=== PATIENT | female | born 1995 | race Caucasian/White ===

== ENCOUNTER 2016-09-07 18:26 | Emergency (ER) | payer BC, OTHER ==
[2016-09-07 18:45] VITALS: BP 120/61
[2016-09-07] MEDS ORDERED: NS 0.9% 1000 ML* 1,000 ML IV ONE (19:01)
[2016-09-07] MEDS ORDERED: Ondansetron INJ* 2 MG/ML VIAL IV ONE (19:01)
[2016-09-07] MEDS ORDERED: Famotidine IV* 10 MG/ML 2 ML (20 mg) IV ONE (19:01)
--- NOTE | 2016-09-07 19:42 | RAD ---
INDICATION: Upper abdominal pain. COMPARISON: There are no prior studies available for comparison. TECHNIQUE: Multiple real-time images of the right upper quadrant were obtained. FINDINGS: The gallbladder appear normal. No gallbladder wall thickening or pericholecystic fluid is present. No intra or extrahepatic ductal distention is present. The common bile duct measured 0.3 cm in diameter. The liver is normal in size without significant focal abnormality. The pancreas is partially obscured by overlying bowel gas. The right kidney is normal in size without evidence for hydronephrosis. IMPRESSION: NEGATIVE EXAM.
[2016-09-07 20:02] LABS: Hematocrit 41 % (35-47); Hemoglobin 13.6 g/dl (12.0-16.0); Mean Corpuscular HGB Conc 34 g/dl (31-36); Mean Corpuscular Hemoglobin 30 pg (27-31); Mean Corpuscular Volume 89 fL (80-97); Mean Platelet Volume 8 um3 (7.4-10.4); Red Cell Distribution Width 13 % (10.5-15); White Blood Count 13.5 10^3/ul (3.5-10.8)
[2016-09-07 20:03] LABS: Add Diff/Slide Review? Slide Review Added; Comments Flag Yes
[2016-09-07 20:28] LABS: ALT 12 U/L (7-52); AST 18 U/L (13-39); Albumin 4.5 g/dL (3.2-5.2); Alkaline Phosphatase 69 U/L (34-104); Amylase 42 U/L (29-103); Anion Gap 7 mmol/L (2-11); BUN/Creatinine Ratio 11.6 (8-20); Blood Urea Nitrogen 11 mg/dL (6-24); C Reactive Protein 10.65 mg/L (< 5.00); CO2 Carbon Dioxide 27 mmol/L (22-32); Calcium 9.4 mg/dL (8.6-10.3); Chloride 102 mmol/L (101-111); EGFR African American 95.5 (>60); EGFR Non-African American 74.3 (>60); Globulin 2.6 g/dL (2-4); Glucose 94 mg/dL (70-100); Lipase 16 U/L (11.0-82.0); Potassium 3.8 mmol/L (3.5-5.0); Sodium 136 mmol/L (133-145); Total Protein 7.1 g/dL (6.4-8.9)
--- NOTE | 2016-09-07 20:56 | ED ---
Rupert Eric Billy, scribed for Reji Worley MD on 09/07/16 at 1856 . Abdominal Pain/Female - HPI Summary HPI Summary: Patient is a 21 year-old female coming to [facility] presenting with 2 days of constant epigastric pain. She describes burning pain, severity 7/10. She states she has had multiple episodes of N/V which she described as "cyclical vomiting. " Denies diarrhea. Denies dysuria. Patient has an IUD. - History of Current Complaint Chief Complaint: EDAbdPain Stated Complaint: VOMITING,ABD PAIN-SENT FROM [facility] Time Seen by Provider: 09/07/16 18:51 Hx Obtained From: Patient Onset/Duration: Gradual Onset, Lasting Days, Still Present Severity Initially: Moderate Severity Currently: Moderate Pain Intensity: 7 Pain Scale Used: 0-10 Numeric Location: Epigastric Radiates: No Character: Burning Aggravating Factor(s): Nothing Alleviating Factor(s): Nothing Associated Signs and Symptoms: Positive: Nausea, Vomiting. Negative: Urinary Symptoms, Diarrhea Allergies/Adverse Reactions: Allergies Allergy/AdvReac Type Severity Reaction Status Date / Time No Known Drug Allergy Allergy none Verified 09/07/16 19:57 PMH/Surg Hx/FS Hx/Imm Hx Endocrine/Hematology History: Denies: Hx Diabetes Cardiovascular History: Denies: Hx Hypertension, Hx Pacemaker/ICD Sensory History: Denies: Hx Hearing Aid Neurological History: Reports: Hx Migraine Psychiatric History: Reports: Hx Attention Deficit Hyperactivity Disorder Denies: Hx Panic Disorder - Surgical History Surgery Procedure, Year, and Place: tubes in ears Infectious Disease History: Yes - MRSA, scarlet fever Infectious Disease History: Denies: Traveled Outside the [place] in Last 30 Days - Family History Known Family History: Negative: Cardiac Disease, Hypertension, Diabetes - Social History Alcohol Use: Occasionally Hx Substance Use: No Substance Use Type: Reports: None Hx Tobacco Use: No Smoking Status (MU): Never Smoked Tobacco Review of Systems Positive: Abdominal Pain, Vomiting, Nausea. Negative: Diarrhea Negative: dysuria All Other Systems Reviewed And Are Negative: Yes Physical Exam - Summary Physical Exam Summary: VITAL SIGNS: Reviewed. GENERAL: Patient is a well developed and nourished female who is lying comfortable in the stretcher. Patient is not in any acute respiratory distress. HEAD AND FACE: Normocephalic and atraumatic. EYES: PERRLA, EOMI x 2, No injected conjunctiva. EARS: Hearing grossly intact. Ear canals and tympanic membranes are WNL. MOUTH: Oropharynx within normal limits. NECK: Supple, trachea is midline, no adenopathy, no JVD. CHEST: Symmetric, no tenderness at palpation LUNGS: Clear to auscultation bilaterally. No wheezing or crackles. CVS: RRR,, S1 and S2 present, no murmurs or gallops appreciated. ABDOMEN: Soft, Positve epigastric tenderness. No signs of distention. Positive bowel sounds. No rebound no guarding, and no masses palpated. No abdominal bruit or pulsations. EXTREMITIES: FROM in all major joints, no edema, no cyanosis or clubbing. NEURO: Alert and oriented x 3. No acute neurological deficits. Speech is normal. SKIN: Dry and warm Triage Information Reviewed: Yes Vital Signs On Initial Exam: Initial Vitals Temp Pulse Resp BP Pulse Ox 100.0 F 105 20 120/61 100 09/07/16 18:39 09/07/16 18:39 09/07/16 18:39 09/07/16 18:39 09/07/16 18:39 Vital Signs Reviewed: Yes Diagnostics - Vital Signs Vital Signs Temp Pulse Resp BP Pulse Ox 09/07/16 18:39 100.0 F 105 20 120/61 100 - Laboratory Result Diagrams: 09/07/16 18:57 09/07/16 18:57 Lab Statement: Any lab studies that have been ordered have been reviewed, and results considered in the medical decision making process. - Ultrasound No standard instances Ultrasound Interpretation Completed By: Radiologist - Abd US: Negative exam. Abdominal Pain Fem Course/Dx - Course Course Of Treatment: Patient is a 21 year-old female coming to [facility] presenting with 2 days of constant epigastric pain. She describes burning pain, severity 7/ 10. She states she has had multiple episodes of N/V which she described as "cyclical vomiting." Denies diarrhea. Denies dysuria. Patient has an IUD. Bloodwork WNL. Abdominal US shows no acute abnormality. She was given IV fluids , Zofran for nausea, and Pepcid for epigastric pain with improvement. At this point she is asymptomatic. Therefore she will be discharged to follow up with PCP. I discussed all the findings and test results with the patient. Patient was instructed to return to the emergency room immediately if any of the symptoms return or worsens. They were explained the possibility of an early abdominal pathology which was not detected at this time despite the physical exam and testing. They understand and agree. Abdominal exam before discharge: Soft, NT. No signs of distention. BS present. No rebound no guarding, and no masses palpated. Patient is alert and oriented and hemodynamically stable. Patient is to follow up with primary care physician in the next 2 to 3 days. Patient agree and understands. - Diagnoses Differential Diagnosis: Positive: Gall Bladder Disease, Peptic Ulcer Disease, Urinary Tract Infection Provider Diagnoses: Epigastric pain Discharge - Discharge Plan Condition: Stable Disposition: HOME Prescriptions: Famotidine TAB* [Pepcid TAB*] 20 mg PO BID #20 tab Patient Education Materials: Epigastric Pain (ED) Referrals: [facility] [Outside] The documentation as recorded by the Rupert torrez Billy accurately reflects the service I personally performed and the decisions made by , Reji Worley MD.
== END 2016-09-07 21:12 | disposition home or self-care (01) ==
LOC: ED 18:26
DX: R10.13 Epigastric pain (principal); R11.2 Nausea with vomiting, unspecified
CPT/HCPCS: 36415; 76705; 80053; 82150; 83605; 83690; 84702; 85025; 86140; 96374; 96375; 99282; J2405

== ENCOUNTER 2017-09-15 22:23 | Emergency (ER) | payer OTHER ==
[2017-09-15] MEDS ORDERED: Lidocaine 1%* 5 ML VIAL INJ ONE (22:59)
[2017-09-15] MEDS ORDERED: Lidocaine 1%* 5 ML VIAL ONE (23:01)
--- NOTE | 2017-09-15 23:04 | ED ---
Lower Extremity - HPI Summary HPI Summary: 22F presents with splinter in left foot today. She states she stepped on a wood floor this morning and a splinter went through her sock and into her foot. she pulled part of it out but part of it broke off and stayed in her foot. She tried to tweeze the other part of it and was unable to get it out. She has not done any warm soaks. Her tetanus is up to date. She is able to ambulate on it. She denies any other injury. She denies any fever or drainage from the area. - History of Current Complaint Chief Complaint: EDExtremityLower Stated Complaint: SPLINTER IN LT FOOT Time Seen by Provider: 09/15/17 22:37 Pain Intensity: 3 - Allergies/Home Medications Allergies/Adverse Reactions: Allergies Allergy/AdvReac Type Severity Reaction Status Date / Time No Known Allergies Allergy Verified 09/15/17 22:28 PMH/Surg Hx/FS Hx/Imm Hx Endocrine/Hematology History: Denies: Hx Diabetes Cardiovascular History: Denies: Hx Hypertension, Hx Pacemaker/ICD Sensory History: Denies: Hx Hearing Aid Neurological History: Reports: Hx Migraine Psychiatric History: Reports: Hx Attention Deficit Hyperactivity Disorder Denies: Hx Panic Disorder - Surgical History Surgery Procedure, Year, and Place: tubes in ears Infectious Disease History: No Infectious Disease History: Denies: Traveled Outside the [place] in Last 30 Days - Family History Known Family History: Negative: Cardiac Disease, Hypertension, Diabetes - Social History Alcohol Use: Occasionally Hx Substance Use: No Substance Use Type: Reports: None Hx Tobacco Use: No Smoking Status (MU): Never Smoked Tobacco Review of Systems Negative: Fever Negative: Chest Pain Negative: Shortness Of Breath Positive: Other - splinter in left foot All Other Systems Reviewed And Are Negative: Yes Physical Exam Triage Information Reviewed: Yes Vital Signs On Initial Exam: Initial Vitals Temp Pulse Resp BP Pulse Ox 98.6 F 68 16 125/75 100 09/15/17 22:26 09/15/17 22:26 09/15/17 22:26 09/15/17 22:26 09/15/17 22:26 Vital Signs Reviewed: Yes Appearance: Positive: Well-Appearing Skin: Positive: Warm, Dry, Other - splinter in left foot Head/Face: Positive: Normal Head/Face Inspection Eyes: Positive: Normal, Conjunctiva Clear Respiratory/Lung Sounds: Positive: Clear to Auscultation, Breath Sounds Present Cardiovascular: Positive: Normal, RRR Musculoskeletal: Positive: Strength/ROM Intact - left foot, Other - good pulses Neurological: Positive: Normal Psychiatric: Positive: Normal Procedures - Laceration/Wound Repair 1 Location: Other - left foot Description: Irregular Irrigated w/ Saline (ccs): 300 Laceration/Wound Explored: foreign body removed - unable to get all of foreign body Diagnostics - Vital Signs Vital Signs Temp Pulse Resp BP Pulse Ox 09/15/17 22:26 98.6 F 68 16 125/75 100 - Laboratory Lab Statement: Any lab studies that have been ordered have been reviewed, and results considered in the medical decision making process. Lower Extremity Course/Dx - Course Course Of Treatment: 22F presents with splinter in left foot today. She states she stepped on a wood floor this morning and a splinter went through her sock and into her foot. she pulled part of it out and but it broke off. She tried to tweeze the other part of it and was unable to get it out. She has not done any warm soaks. Her tetanus is up to date. She is able to ambulate on it. on exam has 1/2cm laceration on left foot. attempted to removed some of the splinter but broke in pieces and was unable to remove one of the pieces. will have place on keflex and do warm soaks to area. patient understand and agrees with plan. - Diagnoses Differential Diagnosis/HQI/PQRI: Positive: Foreign Body, Other - puncture wound , laceration Provider Diagnoses: Splinter of left foot Discharge - Discharge Plan Condition: Good Disposition: HOME Prescriptions: Cephalexin CAP* [Keflex CAP*] 500 mg PO BID #13 cap Patient Education Materials: Soft Tissue Foreign Body (ED) Referrals: No Primary Care Phys,NOPCP [Primary Care Provider] - Additional Instructions: Take antibiotic twice a day for 7 days Do warm soaks of area twice a day Take tyenlol or ibuprofen every 6 hours Return to ED if develop any signs of infection or any new or worsening symptoms
[2017-09-16] MEDS ORDERED: Cephalexin CAP* 500 MG PO ONE (01:00)
[2017-09-16 01:31] VITALS: BP 119/71
== END 2017-09-16 01:29 | disposition home or self-care (01) ==
LOC: ED 22:23
DX: S90.852A Superficial foreign body, left foot, initial encounter (principal); W22.8XXA Striking against or struck by other objects, initial encounter; Y93.9 Activity, unspecified; Y92.9 Unspecified place or not applicable; G43.909 Migraine, unspecified, not intractable, without status migrainosus; F90.9 Attention-deficit hyperactivity disorder, unspecified type
CPT/HCPCS: 99282; A9270-GY